=== PATIENT | male | born 1960 | race Caucasian/White ===

== ENCOUNTER 2019-10-09 14:23 | Emergency (ER) | payer SELFPAY ==
[2019-10-09] MEDS ORDERED: ONDANSETRON HCL INJ/PF 4 MG/2 ML SDV IV ONE (14:45)
[2019-10-09] MEDS ORDERED: RINGERS SOLUTION,LACTATED 1,000 ML IV ONE (14:45)
--- NOTE | 2019-10-09 14:47 | ER Document Report ---
ED Medical Screen (RME) - General Chief Complaint: Weakness Stated Complaint: POSSIBLE DEHYDRATION Time Seen by Provider: 10/09/19 14:42 Mode of Arrival: Ambulatory Information source: Patient Notes: Patient presents complaining of cold symptoms for the past week. Patient developed nausea and vomiting today. Patient states he is vomited about 4 times. Patient reports low-grade fever and decreased energy. Patient also complains of uncontrolled shaking, patient visibly tremulous in triage. Patient denies any history of alcohol use. I have greeted and performed a rapid initial assessment of this patient. A comprehensive ED assessment and evaluation of the patient, analysis of test results and completion of the medical decision making process will be conducted by additional ED providers. TRAVEL OUTSIDE OF THE [place] IN LAST 30 DAYS: No - Related Data Allergies/Adverse Reactions: No Known Allergies Allergy (Verified 06/28/15 20:59) Past Medical History - Past Medical History Cardiac Medical History: Reports: Hx Hypertension Past Surgical History: Reports: Hx Abdominal Surgery - hernia repair - Immunizations Hx Diphtheria, Pertussis, Tetanus Vaccination: No Physical Exam - Vital signs Vitals: Temp Pulse Resp BP Pulse Ox 98.1 F 87 20 154/111 H 97 10/09/19 14:35 10/09/19 14:35 10/09/19 14:35 10/09/19 14:35 10/09/19 14:35 - General General appearance: Alert Notes: Patient visibly tremulous, abdomen nontender Course - Vital Signs Vital signs: Temp Pulse Resp BP Pulse Ox 98.1 F 87 20 154/111 H 97 10/09/19 14:35 10/09/19 14:35 10/09/19 14:35 10/09/19 14:35 10/09/19 14:35
[2019-10-09 15:26] LABS: ABSOLUTE BASOPHILS # (AUTO) 0.1 10^3/uL (0.0-0.2); ABSOLUTE LYMPHOCYTES (AUTO) 0.9 10^3/uL (0.5-4.7); ABSOLUTE MONOCYTES (AUTO) 0.6 10^3/uL (0.1-1.4); BASOPHILS % (AUTO) 0.7 % (0-2); EOSINOPHILS % (AUTO) 0.1 % (0-6); HEMATOCRIT 42.2 % (37.9-51.0); HEMOGLOBIN 14.8 g/dL (13.5-17.0); LYMPHOCYTES % (AUTO) 11.6 % (13-45); MEAN CORPUSCULAR HEMOGLOBIN 33.2 pg (27.0-33.4); MEAN CORPUSCULAR HGB CONC 35.2 g/dL (32.0-36.0); MEAN CORPUSCULAR VOLUME 94 fl (80-97); MONOCYTES % (AUTO) 7.5 % (3-13); PLATELET COUNT 162 10^3/uL (150-450); RED BLOOD COUNT 4.46 10^6/uL (4.35-5.55); RED CELL DISTRIBUTION WIDTH 13.4 % (11.5-14.0); SEGMENTED NEUTROPHILS % (AUTO) 80.1 % (42-78); TOTAL CELLS COUNTED % (AUTO) 100 %; WHITE BLOOD COUNT 7.5 10^3/uL (4.0-10.5)
--- NOTE | 2019-10-09 15:55 | RADIOLOGY REPORT (SQ) ---
EXAM DESCRIPTION: CHEST 2 VIEWS COMPLETED DATE/TIME: 10/09/2019 3:34 pm REASON FOR STUDY: cough COMPARISON: Chest x-ray 08/01/2015. EXAM PARAMETERS: NUMBER OF VIEWS: two views TECHNIQUE: Digital Frontal and Lateral radiographic views of the chest acquired. RADIATION DOSE: NA LIMITATIONS: none FINDINGS: LUNGS AND PLEURA: No consolidation, pneumothorax or pleural effusion. MEDIASTINUM AND HILAR STRUCTURES: No masses or contour abnormalities. HEART AND VASCULAR STRUCTURES: Heart normal size. No evidence for failure. BONES: No acute findings. HARDWARE: None in the chest. IMPRESSION: NO ACUTE RADIOGRAPHIC FINDING IN THE CHEST. TECHNICAL DOCUMENTATION: JOB ID: [id number] 2010 [employer]- All Rights Reserved Reading location - IP/workstation name: [email or web address]
[2019-10-09 16:01] LABS: ALKALINE PHOSPHATASE 97 U/L (38-126); ANION GAP 14 (5-19); ASPARTATE AMINO TRANSFERASE 66 U/L (17-59); BILIRUBIN,DIRECT 0.3 mg/dL (0.0-0.4); BILIRUBIN,TOTAL 0.7 mg/dL (0.2-1.3); BLOOD UREA NITROGEN 17 mg/dL (7-20); CALCIUM 9.6 mg/dL (8.4-10.2); CARBON DIOXIDE 23 mmol/L (22-30); CHLORIDE 97 mmol/L (98-107); GLUCOSE 84 mg/dL (75-110); TOTAL PROTEIN 7.2 g/dL (6.3-8.2)
--- NOTE | 2019-10-09 16:30 | ER Document Report ---
ED General - General Chief Complaint: Nausea/Vomiting Stated Complaint: POSSIBLE DEHYDRATION Time Seen by Provider: 10/09/19 14:42 Primary Care Provider: STANFORD CROWDER MD [ACTIVE STAFF] - Follow up in 3-5 days Mode of Arrival: Ambulatory Information source: Patient Notes: 59-year-old male with history of testicular cancer when he was younger and high blood pressure presents to the emergency department with complaints of feeling weak when he woke up. Reports he has had cold symptoms for approximately 1 week. Reports he vomited approximately 4-5 times today. Reports he felt dehydrated shaky. He reports he had a low-grade fever but admits he felt more clammy than feverish. He denies chest pain. Denies shortness of breath. He reports decreased energy. Denies history of cardiac disease. Patient is a little shaky. He reports he is normally not shaky. TRAVEL OUTSIDE OF THE [place] IN LAST 30 DAYS: No - HPI Onset: This morning Onset/Duration: Sudden Quality of pain: No pain Associated symptoms: Nausea, Vomiting Exacerbated by: Denies Relieved by: Denies Similar symptoms previously: No Recently seen / treated by doctor: No - Related Data Allergies/Adverse Reactions: No Known Allergies Allergy (Verified 06/28/15 20:59) Home Medications: Lisinoprile Past Medical History - General Information source: Patient - Social History Smoking Status: Current Every Day Smoker Cigarette use (# per day): Yes Frequency of alcohol use: Rare Drug Abuse: None Occupation: retired Lives with: Parents - father Family History: Reviewed & Not Pertinent Patient has suicidal ideation: No Patient has homicidal ideation: No - Past Medical History Cardiac Medical History: Reports: Hx Hypertension Past Surgical History: Reports: Hx Abdominal Surgery - hernia repair - Immunizations Hx Diphtheria, Pertussis, Tetanus Vaccination: No Review of Systems - Review of Systems Notes: Review HPI for review of systems., All other systems negative Physical Exam - Vital signs Vitals: Pulse Resp BP Pulse Ox 88 18 234/102 H 97 10/09/19 14:31 10/09/19 14:31 10/09/19 14:31 10/09/19 14:31 - General General appearance: Alert In distress: None - HEENT Head: Normocephalic, Atraumatic Eyes: Normal Conjunctiva: Normal Extraocular movements intact: Yes Pupils: PERRL Ears: Normal External canal: Normal, Cerumen impaction - Right Nasal: Normal Mouth/Lips: Normal Mucous membranes: Moist Pharynx: Normal Neck: Normal, Supple. No: Lymphadenopathy - Respiratory Respiratory status: No respiratory distress Chest status: Nontender Breath sounds: Normal Chest palpation: Normal - Cardiovascular Rhythm: Regular Heart sounds: Normal auscultation, S1 appreciated, S2 appreciated Murmur: No - Abdominal Inspection: Normal Distension: No distension Bowel sounds: Normal Tenderness: Nontender Organomegaly: No organomegaly - Back Back: Normal, Nontender - Extremities General upper extremity: Normal ROM, Normal strength General lower extremity: Normal ROM, Normal strength - Neurological Neuro grossly intact: Yes Cognition: Normal Orientation: AAOx4 Froid Coma Scale Eye Opening: Spontaneous Karly Coma Scale Verbal: Oriented Froid Coma Scale Motor: Obeys Commands Karly Coma Scale Total: 15 Speech: Normal Cranial nerves: Normal Motor strength normal: LUE, RUE, LLE, RLE 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 Reports he has been having cold symptoms for the past week woke up today vomited 4-5 times. Labs are unremarkable sodium 133.6. Received 1 L of LR. No further vomiting. Patient drinking p.o. fluids eating crackers. Reports he feels much better. 10/09/19 18:00 Patient reports he is has a little bit of headache. Reports he has not taken his blood pressure medication in 3 days because he has not felt well. He reports he takes lisinopril twice a day. Lisinopril ordered with Tylenol. 10/09/19 18:50 Patient reports headache is gone. He reports he feels much better he has not been vomiting. Blood pressure is still high. He was instructed on this. He reports he hasn't been able to take his BP med because he didn't feel well but he will take it as prescribed now. Patient has had crackers and fluids. Reports he does not feel shaky. He reports he will follow-up with Dr. Crowder his primary care provider in [place] this week. Laboratory 10/09/19 10/09/19 10/09/19 15:07 15:07 15:07 WBC 7.5 RBC 4.46 Hgb 14.8 Hct 42.2 MCV 94 MCH 33.2 MCHC 35.2 RDW 13.4 Plt Count 162 Lymph % (Auto) 11.6 L [place] % (Auto) 7.5 Eos % (Auto) 0.1 Baso % (Auto) 0.7 Absolute Neuts (auto) 6.0 Absolute Lymphs (auto) 0.9 Absolute Monos (auto) 0.6 Absolute Eos (auto) 0.0 Absolute Basos (auto) 0.1 Seg Neutrophils % 80.1 H Sodium 133.6 L Potassium 4.0 Chloride 97 L Carbon Dioxide 23 Anion Gap 14 BUN 17 Creatinine 0.61 Est GFR ( Amer) > 60 Est GFR (MDRD) Non-Af > 60 Glucose 84 Calcium 9.6 Magnesium 1.6 Total Bilirubin 0.7 Direct Bilirubin 0.3 Neonat Total Bilirubin Not Reportable Neonat Direct Bilirubin Not Reportable Neonat Indirect Bili Not Reportable AST 66 H ALT 30 Alkaline Phosphatase 97 Troponin I 0.019 Total Protein 7.2 Albumin 4.0 Lipase 181.5 Urine Color Urine Appearance Urine pH Ur Specific [place] Urine Protein Urine Glucose (UA) Urine Ketones Urine Blood Urine Nitrite Urine Bilirubin Urine Urobilinogen Ur Leukocyte Esterase Urine WBC (Auto) Urine RBC (Auto) Squamous Epi Cells Auto Urine Mucus (Auto) Urine Ascorbic Acid 10/09/19 16:10 WBC RBC Hgb Hct MCV MCH MCHC RDW Plt Count Lymph % (Auto) [place] % (Auto) Eos % (Auto) Baso % (Auto) Absolute Neuts (auto) Absolute Lymphs (auto) Absolute Monos (auto) Absolute Eos (auto) Absolute Basos (auto) Seg Neutrophils % Sodium Potassium Chloride Carbon Dioxide Anion Gap BUN Creatinine Est GFR ( Amer) Est GFR (MDRD) Non-Af Glucose Calcium Magnesium Total Bilirubin Direct Bilirubin Neonat Total Bilirubin Neonat Direct Bilirubin Neonat Indirect Bili AST ALT Alkaline Phosphatase Troponin I Total Protein Albumin Lipase Urine Color YELLOW Urine Appearance CLEAR Urine pH 5.0 Ur Specific [place] 1.019 Urine Protein 100 H Urine Glucose (UA) NEGATIVE Urine Ketones 20 H Urine Blood NEGATIVE Urine Nitrite NEGATIVE Urine Bilirubin NEGATIVE Urine Urobilinogen NEGATIVE Ur Leukocyte Esterase NEGATIVE Urine WBC (Auto) 1 Urine RBC (Auto) 1 Squamous Epi Cells Auto <1 Urine Mucus (Auto) RARE Urine Ascorbic Acid NEGATIVE 10/09/19 19:38 - Vital Signs Vital signs: Temp Pulse Resp BP Pulse Ox 98.0 F 83 17 208/98 H 98 10/09/19 19:19 10/09/19 19:19 10/09/19 19:19 10/09/19 19:19 10/09/19 19:19 - Laboratory Result Diagrams: 10/09/19 15:07 10/09/19 15:07 Laboratory results interpreted by me: 10/09/19 10/09/19 10/09/19 15:07 15:07 16:10 Lymph % (Auto) 11.6 L Seg Neutrophils % 80.1 H Sodium 133.6 L Chloride 97 L AST 66 H Urine Protein 100 H Urine Ketones 20 H - Diagnostic Test Radiology reviewed: Image reviewed, Reports reviewed - EKG Interpretation by Me EKG shows normal: Sinus rhythm Rate: Normal Additional EKG results interpreted by me: 10/09/19 16:[address] elevation no T wave inversion prolonged QTC at 506 Discharge - Discharge Clinical Impression: Nausea & vomiting Qualifiers: Vomiting type: unspecified Vomiting Intractability: non-intractable Qualified Code(s): R11.2 - Nausea with vomiting, unspecified Condition: Stable Disposition: HOME, SELF-CARE Instructions: Antinausea Medication ([facility]), High Blood Pressure, Requiring Tr eatment ([facility]), Intravenous (IV) Fluids ([facility]), Vomiting ([facility]) Additional Instructions: *You have been evaluated for nausea/vomiting , high blood pressure *Ensure adequate fluid intake as discussed to prevent dehydration *Follow up with Dr Crowder within one week for recheck and to discuss your high blood pressure *Return to ED for worsening condition, changes, needs, return of vomiting Forms: Elevated Blood Pressure Referrals: STANFORD CROWDER MD [ACTIVE STAFF] - Follow up in 3-5 days
[2019-10-09 16:39] LABS: APPEARANCE,URINE CLEAR; BILIRUBIN,URINE NEGATIVE (NEGATIVE); COLOR,URINE YELLOW; GLUCOSE, URINE NEGATIVE (NEGATIVE); KETONES,URINE 20 mg/dL (NEGATIVE); LEUKOCYTE ESTERASE,URINE NEGATIVE (NEGATIVE); NITRITE,URINE NEGATIVE (NEGATIVE); PROTEIN,URINE 100 mg/dL (NEGATIVE); URINE SPECIFIC GRAVITY 1.019; UROBILINOGEN,URINE NEGATIVE mg/dL (<2.0)
[2019-10-09] MEDS ORDERED: ACETAMINOPHEN 325 MG TABLET PO ONE (18:07)
[2019-10-09] MEDS ORDERED: LISINOPRIL 10 MG TABLET PO ONE (18:07)
[2019-10-09] MEDS ORDERED: ONDANSETRON ODT 4 MG TAB (6 TAB/ER DISP) PO PRN (19:00)
[2019-10-09 19:23] VITALS: BP 208/98
--- NOTE | 2019-10-09 20:36 | EKG REPORT ---
SEVERITY:- ABNORMAL ECG - SINUS RHYTHM PROBABLE LEFT ATRIAL ABNORMALITY PROLONGED QT INTERVAL : Confirmed by: Ellen Guzman MD 09-Oct-2019 20:34:11
== END 2019-10-09 19:19 | disposition home or self-care (01) ==
LOC: ER 14:23
DX: R11.2 Nausea with vomiting, unspecified (principal); I10 Essential (primary) hypertension; T46.4X6A Underdosing of angiotensin-converting-enzyme inhibitors, initial encounter; Z91.128 Patient's intentional underdosing of medication regimen for other reason; Z91.14 Patient's other noncompliance with medication regimen; R51 Headache; R53.1 Weakness; H61.21 Impacted cerumen, right ear; Z85.47 Personal history of malignant neoplasm of testis; F17.210 Nicotine dependence, cigarettes, uncomplicated
CPT/HCPCS: 93005; 36415; 83690; 83735; 85025; 80053; 81001; 84484; 71046; 93010; J2405; J7120; 96361; 96374; 99284

== ENCOUNTER 2020-01-10 07:27 | Emergency (ER) | payer SELFPAY ==
[2020-01-10 08:03] LABS: ABSOLUTE BASOPHILS # (AUTO) 0.1 10^3/uL (0.0-0.2); ABSOLUTE EOSINOPHILS # (AUTO) 0.1 10^3/uL (0.0-0.6); ABSOLUTE LYMPHOCYTES (AUTO) 1.3 10^3/uL (0.5-4.7); ABSOLUTE MONOCYTES (AUTO) 0.8 10^3/uL (0.1-1.4); ABSOLUTE NEUT (AUTO) 9.1 10^3/uL (1.7-8.2); BASOPHILS % (AUTO) 0.6 % (0-2); EOSINOPHILS % (AUTO) 0.6 % (0-6); HEMATOCRIT 32.9 % (37.9-51.0); HEMOGLOBIN 11.5 g/dL (13.5-17.0); LYMPHOCYTES % (AUTO) 11.1 % (13-45); MEAN CORPUSCULAR HEMOGLOBIN 34.9 pg (27.0-33.4); MEAN CORPUSCULAR HGB CONC 34.9 g/dL (32.0-36.0); MEAN CORPUSCULAR VOLUME 100 fl (80-97); MONOCYTES % (AUTO) 7.3 % (3-13); PLATELET COUNT 140 10^3/uL (150-450); RED BLOOD COUNT 3.29 10^6/uL (4.35-5.55); RED CELL DISTRIBUTION WIDTH 14.4 % (11.5-14.0); SEGMENTED NEUTROPHILS % (AUTO) 80.4 % (42-78); TOTAL CELLS COUNTED % (AUTO) 100 %; WHITE BLOOD COUNT 11.4 10^3/uL (4.0-10.5)
[2020-01-10] MEDS ORDERED: NORMAL SALINE 1000 ML 1,000 ML IV ONE (08:18)
[2020-01-10] MEDS ORDERED: ONDANSETRON HCL INJ/PF 4 MG/2 ML SDV IV ONE (08:20)
[2020-01-10] MEDS ORDERED: PANTOPRAZOLE SODIUM 40 MG VIAL IV ONE (08:20)
[2020-01-10 08:30] LABS: ALBUMIN 3.9 g/dL (3.5-5.0); ALKALINE PHOSPHATASE 61 U/L (38-126); ANION GAP 8 (5-19); ASPARTATE AMINO TRANSFERASE 43 U/L (17-59); BILIRUBIN,TOTAL 0.5 mg/dL (0.2-1.3); BLOOD UREA NITROGEN 39 mg/dL (7-20); CALCIUM 9.8 mg/dL (8.4-10.2); CARBON DIOXIDE 25 mmol/L (22-30); CHLORIDE 103 mmol/L (98-107); GLUCOSE 94 mg/dL (75-110); INTERNATIONAL RATION (INR) 1.04; POTASSIUM 3.9 mmol/L (3.6-5.0); PROTHROMBIN TIME 13.7 SEC (11.4-15.4); TOTAL PROTEIN 6.4 g/dL (6.3-8.2)
[2020-01-10 08:31] LABS: PARTIAL THROMBOPLASTIN TIME 36.5 SEC (23.5-35.8)
--- NOTE | 2020-01-10 09:51 | RADIOLOGY REPORT (SQ) ---
EXAM DESCRIPTION: CHEST SINGLE VIEW IMAGES COMPLETED DATE/TIME: 01/10/2020 9:39 am REASON FOR STUDY: UGI bleed COMPARISON: 10/09/2019 EXAM PARAMETERS: NUMBER OF VIEWS: One view. TECHNIQUE: Single frontal radiographic view of the chest acquired. RADIATION DOSE: NA LIMITATIONS: None. FINDINGS: LUNGS AND PLEURA: No opacities, masses or pneumothorax. No pleural effusion. MEDIASTINUM AND HILAR STRUCTURES: No masses. Contour normal. HEART AND VASCULAR STRUCTURES: Heart normal in size. Normal vasculature. BONES: No acute findings. HARDWARE: None in the chest. OTHER: No other significant finding. IMPRESSION: NO ACUTE RADIOGRAPHIC FINDING IN THE CHEST. TECHNICAL DOCUMENTATION: JOB ID: [id number] 2010 [employer]- All Rights Reserved Reading location - IP/workstation name: [email or web address]
[2020-01-10 12:03] LABS: APPEARANCE,URINE CLEAR; COLOR,URINE YELLOW
[2020-01-10 12:04] LABS: ADD MANUAL MICROSCOPIC YES; BILIRUBIN,URINE NEGATIVE (NEGATIVE); GLUCOSE, URINE NEGATIVE (NEGATIVE); KETONES,URINE 25 mg/dL (NEGATIVE); LEUKOCYTE ESTERASE,URINE NEGATIVE (NEGATIVE); NITRITE,URINE NEGATIVE (NEGATIVE); PROTEIN,URINE NEGATIVE (NEGATIVE); UROBILINOGEN,URINE NEGATIVE mg/dL (<2.0)
[2020-01-10 12:05] LABS: RBC,URINE NONE SEEN /HPF; WBC,URINE NONE SEEN /HPF
--- NOTE | 2020-01-10 12:06 | RADIOLOGY REPORT (SQ) ---
EXAM DESCRIPTION: CT ABD/PELVIS WITH IV ORAL IMAGES COMPLETED DATE/TIME: 01/10/2020 11:48 am REASON FOR STUDY: melena/coffee ground emesis/history of ulcer COMPARISON: None. TECHNIQUE: CT scan of the abdomen and pelvis performed using helical scanning technique with dynamic intravenous contrast injection. No oral contrast. Images reviewed with lung, soft tissue, and bone windows. Reconstructed coronal and sagittal MPR images reviewed. Delayed images for evaluation of the urinary system also acquired. All images stored on PACS. All CT scanners at this facility use dose modulation, iterative reconstruction, and/or weight based d osing when appropriate to reduce radiation dose to as low as reasonably achievable (ALARA). [facility]: Dose Right [facility]: CareDose [facility]: Dose Right [facility]: Teradose 4D [facility]: TDI [place] CONTRAST TYPE AND DOSE: contrast/concentration: Isovue 350.00 mg/ml; Total Contrast Delivered: 86.0 ml; Total Saline Delivered: 62.5 ml RENAL FUNCTION: BUN 39, creatinine 0.61 RADIATION DOSE: CT Rad equipment meets quality standard of care and radiation dose reduction techniq ues were employed. CTDIvol: 6.4 - 8.8 mGy. DLP: 800 mGy-cm.. LIMITATIONS: None. FINDINGS: LOWER CHEST: No significant findings. No nodules or infiltrates. LIVER: There is decreased attenuation throughout the liver. There is a calcification in the right lo be near the dome of liver. Multiple small hypoattenuating lesions most consistent with cysts. No ab normal enhancement. The liver measures just over 18 cm in cranial caudal dimensions. SPLEEN: Normal size. No focal lesions. PANCREAS: No masses. No significant calcifications. No adjacent inflammation or peripancreatic fluid collections. Pancreatic duct not dilated. GALLBLADDER: No identified stones by CT criteria. No inflammatory changes to suggest cholecystitis. ADRENAL GLANDS: No significant masses or asymmetry. RIGHT KIDNEY AND URETER: Indeterminate hypoattenuating lesion in the medial aspect of the right kidne y. This is best demonstrated on series 5, image 40. This measures 2 cm in greatest diameter. It de monstrates Hounsfield units ranging from 26th of 30. Most likely complex cyst although solid lesion cannot be excluded. There are small hypoattenuating lesions which are indeterminate. There are tg pelvic cysts. No significant calcifications. No hydronephrosis or hydroureter. LEFT KIDNEY AND URETER: Numerous left-sided cysts. No significant calcifications. No hydronephros is or hydroureter. AORTA AND VESSELS: No aneurysm. No dissection. Renal arteries, SMA, celiac without stenosis. RETROPERITONEUM: No retroperitoneal adenopathy, hemorrhage or masses. BOWEL AND PERITONEAL CAVITY: No masses or inflammatory changes. No free fluid or peritoneal masses. APPENDIX: Not visualized. PELVIS: No mass. No free fluid. Normal bladder. ABDOMINAL WALL: Left inguinal hernia containing omental fat and vessels. BONES: No significant or acute findings. OTHER: No other significant finding. IMPRESSION: 1. Indeterminate 2 cm lesion in the medial aspect of left kidney. Most likely complex c yst. This can be further evaluated with ultrasound. There are numerous small hypoattenuating lesion s which cannot be accurately characterize. There are numerous left renal cysts. 2. Fatty infiltration of liver. Mild hepatomegaly. Multiple small hepatic cysts. TECHNICAL DOCUMENTATION: JOB ID: [id number] Quality ID # [id number]: Final reports with documentation of one or more dose reduction techniques (e.g., Au tomated exposure control, adjustment of the mA and/or kV according to patient size, use of iterative reconstruction technique) 2010 [employer]- All Rights Reserved Reading location - IP/workstation name: [email or web address]
[2020-01-10 12:39] VITALS: BP 142/69
--- NOTE | 2020-01-10 14:07 | ER Document Report ---
Entered by NIRAV MORRELL SCRIBE 01/10/20 0817 Acting as scribe for:RIANNA MCDANIEL MD ED General - General Chief Complaint: Nausea/Vomiting Stated Complaint: NAUSEA,VOMITING Time Seen by Provider: 01/10/20 07:36 Information source: Patient Notes: This 59-year-old male presents to the emergency department complaining of black stool that occurred this morning. Patient states that this morning he woke up with epigastric pain with associated nausea. Patient took Pepto-bismol for his nausea. Patient said that he went to the bathroom 20 minutes later and noticed black tarry stool. Patient said that he was concerned due to having similar symptoms 12 years ago with his GI bleed. Patient said that he vomited after his bowel movement and described the color as black. Patient states that he still feels epigastric pain now and has not vomited since the initial episode this morning. Patient denies fever, diaphoresis and weight loss. Patient explains that he sees a chiropractor for back pain and was told to take BC powder for his pain. TRAVEL OUTSIDE OF THE [place] IN LAST 30 DAYS: No - Related Data Allergies/Adverse Reactions: No Known Allergies Allergy (Verified 06/28/15 20:59) Past Medical History - General Information source: Patient - Social History Smoking Status: Never Smoker Cigarette use (# per day): No Chew tobacco use (# tins/day): No Frequency of alcohol use: Occasional Drug Abuse: None Lives with: Family Family History: Reviewed & Not Pertinent - Past Medical History Cardiac Medical History: Reports: Hx Hypertension Malignancy Medical History: Reports Hx Testicular Cancer Past Surgical History: Reports: Hx Abdominal Surgery - hernia repair, Hx Testicular Surgery - Removal 28 years ago d/t cancer - Immunizations Hx Diphtheria, Pertussis, Tetanus Vaccination: No Review of Systems - Review of Systems Constitutional: See HPI. denies: Diaphoresis, Fever, Weight loss EENT: No symptoms reported Cardiovascular: No symptoms reported Respiratory: No symptoms reported Gastrointestinal: See HPI, Abdominal pain, Nausea, Vomiting, Blood in vomit, Black stools Genitourinary: No symptoms reported Male Genitourinary: No symptoms reported Musculoskeletal: No symptoms reported Skin: No symptoms reported Hematologic/Lymphatic: No symptoms reported Neurological/Psychological: No symptoms reported -: Yes All other systems reviewed and negative Physical Exam - Vital signs Vitals: Temp 98.2 F 01/10/20 07:27 - Notes Notes: Physical Exam: General: Alert, appears well. HEENT: Normocephalic. Atraumatic. PERRL. Extraocular movements intact. Orop harynx clear. No blood in mouth. Neck: Supple. Non-tender. Respiratory: No respiratory distress. Clear and equal breath sounds bilaterally. Cardiovascular: Regular rate and rhythm. Abdominal: Epigastric tenderness anteriorly to palpation. No distension. Normal Bowel Sounds. Rectal: Black stool noted that is guaiac positive. No hemorrhoids. Prostate is normal. Back: No gross abnormalities. Extremities: Moves all four extremities. Upper extremities: Normal inspection. Normal ROM. Lower extremities: Normal inspection. No edema. Normal ROM. Neurological: Normal cognition. AAOx4. Normal speech. Psychological: Normal affect. Normal Mood. Skin: Warm. Dry. Normal color. Course - Re-evaluation Re-evalutation: 01/10/20 13:53 Patient resting comfortably not showing any signs of distress no nausea vomiting or significant abdominal pain at all at this time. Patient is not showing any signs of shortness of breath or any chest pain. 01/10/20 13:55 Discussed case with GI on-call Dr. Dr. Springer, who stated that patient can be discharged home. And that he is learned that the hospital is allowing out outp atient endoscopy so patient can be placed on the list this week to have an upper endoscopy done. Patient will be instructed to follow-up with Dr. Noe's office and get and be scheduled for an outpatient upper endoscopy. - Vital Signs Vital signs: Temp Pulse Resp BP Pulse Ox 98.6 F 72 16 142/69 H 99 01/10/20 12:38 01/10/20 12:38 01/10/20 12:38 01/10/20 12:38 01/10/20 12:38 - Laboratory Result Diagrams: 01/10/20 07:47 01/10/20 07:47 Laboratory results interpreted by me: 01/10/20 01/10/20 01/10/20 07:47 07:47 07:47 WBC 11.4 H RBC 3.29 L Hgb 11.5 L Hct 32.9 L MCV 100 H MCH 34.9 H RDW 14.4 H Plt Count 140 L Lymph % (Auto) 11.1 L Absolute Neuts (auto) 9.1 H Seg Neutrophils % 80.4 H APTT 36.5 H Sodium 136.0 L BUN 39 H Lactic Acid Urine Ketones 01/10/20 01/10/20 08:30 11:37 WBC RBC Hgb Hct MCV MCH RDW Plt Count Lymph % (Auto) Absolute Neuts (auto) Seg Neutrophils % APTT Sodium BUN Lactic Acid < 0.5 L Urine Ketones 25 H 01/10/20 13:54 Laboratories within normal limits patient's hemoglobin is 11.2. Patient's troponin x2- initial 1 was 0.01 2 repeat was 0.013. - Diagnostic Test Radiology reviewed: Image reviewed, Reports reviewed Radiology results interpreted by me: 01/10/20 13:54 Chest x-ray no acute process CT scan abdomen and pelvis with oral and IV contrast shows no GI bleed or any tumor mass in the stomach or ulcerations in the stomach. Incidentally noted was a complex cyst in the kidney otherwise no acute process. - EKG Interpretation by Me Additional EKG results interpreted by me: 01/10/20 09:06 z 12-lead EKG shows normal sinus rhythm rate of 78 borderline T wave ab normalities. Borderline prolonged QT interval. Discharge - Discharge Clinical Impression: Upper GI bleed Condition: Stable Disposition: HOME, SELF-CARE Instructions: Abdominal Pain ([facility]) Additional Instructions: Upper Gastrointestinal Bleeding You have had bleeding from the upper intestinal tract (the stomach or first part of the small intestine). The bleeding is not severe enough to warrant hospitalization. If bleeding occurs simply from the trauma of recurrent vomiting, no further evaluation is necessary. However, if there is evidence of a tumor or ulcer as the source of blood, further testing and treatment are necessary. If this has been recommended to you, it's important that you follow up as instructed. Usually, antacids or acid-suppressing drugs are given. Avoid alcohol, aspirin, and tobacco. Most patients are able to return to a normal diet. If you become lightheaded or weak, or vomit a large amount of blood or blackish material, or if you have black, tarry stool, call the doctor or return for re-evaluation at once. Please follow-up with Dr. SPRINGER, college counselor. His name and telephone number of his office is on your discharge instructions. Please call tomorrow and have his office set you up for an outpatient upper endoscopy to be scheduled this week. Prescriptions: Pantoprazole Sodium [Protonix [address] Tablet] 40 mg PO QAM 30 Days #30 ta blet. Ondansetron [Zofran Odt 4 mg Tablet] 1 - 2 tab PO QID #20 tab.rapdis Referrals: ASHTYN SPRINGER MD [ACTIVE STAFF] - Follow up tomorrow (CALL OFFICE TOMORROW TO ARRANGE FOLLOW UP WITH DR SPRINGER [facility] I personally performed the services described in the documentation, reviewed and edited the documentation which was dictated to the scribe in my presence, and it accurately records my words and actions.
--- NOTE | 2020-01-11 08:39 | EKG REPORT ---
SEVERITY:- BORDERLINE ECG - SINUS RHYTHM BORDERLINE T WAVE ABNORMALITIES BORDERLINE PROLONGED QT INTERVAL : Confirmed by: Carli Obregon 11-Jan-2020 08:39:06
== END 2020-01-10 14:16 | disposition home or self-care (01) ==
LOC: ER 07:27
DX: K92.2 Gastrointestinal hemorrhage, unspecified (principal); R11.2 Nausea with vomiting, unspecified; R19.5 Other fecal abnormalities; R10.13 Epigastric pain; M54.9 Dorsalgia, unspecified; I10 Essential (primary) hypertension
CPT/HCPCS: 93005; 99285; 96361; 96374; 96375; 86900; 86901; 36415; 86850; 83605; 83690; 85025; 85610; 85730; 82270; 80053; 81001; 84484; 71045; 74177; 93010; C9113; J2405; J7030